=== PATIENT | male | born 2000 | race American Indian/Alaskan Native ===

== ENCOUNTER 2020-05-28 22:38 | Emergency (ER) | payer SELFPAY ==
[2020-05-28] MEDS ORDERED: ONDANSETRON 4 MG/2 ML INJ IV ONE (22:57)
[2020-05-28] MEDS ORDERED: SODIUM CHLORIDE 0.9% 1000 ML 1,000 ML IV ONE (22:57)
--- NOTE | 2020-05-28 23:06 | Event Note ---
ED Screening Note Date of service: 05/28/20 Time: 23:04 ED Screening Note: 19-year-old -Maced[place] male presents to the emergency room for abdominal pain with vomitus x7 days. Patient states he noticed a lot of blood in his vomitus. Patient states that he was seen at [facility] and was given a prescription for his stomach but never filled it. Patient admits that he drinks alcohol socially he smokes marijuana rarely denies any smoking of cigarettes. Patient reports he last vomited around 8 PM and denies any diarrhea. Patient denies any fever or chills. Does not have a primary care provider. Past medical history of GERD. No past surgical history. This initial assessment/diagnostic orders/clinical plan/treatment(s) is/are subject to change based on patients health status, clinical progression and re- assessment by fellow clinical providers in the ED. Further treatment and workup at subsequent clinical providers discretion. Patient/guardian urged not to elope from the ED as their condition may be serious if not clinically assessed and managed. Initial orders include: Labs urine and UDS ordered IV normal saline IV Zofran and CT of abdomen with contrast
[2020-05-28 23:43] LABS: Hematocrit 35.9 % (35.5-45.6); Mean Corpuscular HGB Conc 33 % (32-34); Mean Corpuscular Volume 79 fl (84-94); Platelet Count 284 K/mm3 (140-440); Red Blood Count 4.53 M/mm3 (3.65-5.03); Red Cell Distribution Width 14.5 % (13.2-15.2)
[2020-05-28 23:53] LABS: Basophils % (Auto) 0.4 % (0.0-1.8); Eosinophils % (Auto) 0.3 % (0.0-4.3); Lymphocytes # (Auto) 0.4 K/mm3 (1.2-5.4); Lymphocytes % (Auto) 8.7 % (13.4-35.0); Monocytes # (Auto) 0.5 K/mm3 (0.0-0.8); Monocytes % (Auto) 9.8 % (0.0-7.3)
[2020-05-29] LABS: Alanine Aminotransferase 6 units/L (7-56); Albumin 4.2 g/dL (3.9-5); BUN/Creatinine Ratio 9; Blood Urea Nitrogen 7 mg/dL (9-20); Calcium 9.6 mg/dL (8.4-10.2); Hemolysis Index 0
[2020-05-29 00:26] LABS: Amphetamine Screen,Urine PRESUMPTIVE NEGATIVE; Benzodiazepines Screen,Urine PRESUMPTIVE NEGATIVE; Cannabinoid Screen,Urine PRESUMPTIVE NEGATIVE; Cocaine Screen,Urine PRESUMPTIVE NEGATIVE; Methadone Screen,Urine PRESUMPTIVE NEGATIVE; Opiate Screen,Urine PRESUMPTIVE NEGATIVE
[2020-05-29 00:33] LABS: Bilirubin,Urine NEG (Negative); Blood,Urine NEG (Negative); Color,Urine Amber (Yellow); Mucus,Urine 2+ /HPF; RBC,Urine < 1.0 /HPF (0.0-6.0)
--- NOTE | 2020-05-29 01:33 | Emergency Department Report ---
ED Abdominal Pain HPI - General Chief Complaint: Nausea/Vomiting/Diarrhea Stated Complaint: EMESIS BLOOD/BACK PAIN PUI?: No Time Seen by Provider: 05/28/20 22:56 Source: patient, EMS Mode of arrival: Stretcher Limitations: No Limitations - History of Present Illness Initial Comments: 19-year-old -[place]ir[place] male presents to the emergency room for abdominal pain with vomitus x7 days. Patient states he noticed a lot of blood in his vomitus. Patient states that he was seen at [facility] and was given a prescription for his stomach but never filled it. Patient admits that he drinks alcohol socially he smokes marijuana rarely denies any smoking of cigarettes. Patient reports he last vomited around 8 PM and denies any diarrhea. Patient denies any fever or chills. Does not have a primary care provider. Past medical history of GERD. No past surgical history. MD Complaint: abdominal pain Onset/Timin -: days(s) Location: diffuse Radiation: none Migration to: no migration Severity scale (0 -10): 8 Quality: aching Consistency: intermittent Improves With: nothing Worsens With: nothing Associated Symptoms: nausea, vomiting - Related Data Previous Rx's Medication Instructions Recorded Last Taken Type Doxycycline Hyclate [Doxycycline 100 mg PO Q12HR 10 Days #20 tab 05/29/20 Unknown Rx Hyclate TAB] Ondansetron [Zofran Odt] 4 mg PO Q8HR PRN #12 tab.rapdis 05/29/20 Unknown Rx levoFLOXacin [Levaquin TAB] 500 mg PO QDAY #7 tablet 05/29/20 Unknown Rx metroNIDAZOLE [Flagyl] 500 mg PO Q8HR #21 tablet 05/29/20 Unknown Rx Allergies Allergy/AdvReac Type Severity Reaction Status Date / Time No Known Allergies Allergy Unverified 05/28/20 22:55 ED Review of Systems ROS: Stated complaint: EMESIS BLOOD/BACK PAIN Other details as noted in HPI Comment: All other systems reviewed and negative ED Past Medical Hx - Past Medical History Previous Medical History?: Yes Hx GERD: Yes - Surgical History Past Surgical History?: No - Social History Smoking Status: Never Smoker Substance Use Type: None - Medications Home Medications: Home Medications Medication Instructions Recorded Confirmed Last Taken Type Doxycycline Hyclate [Doxycycline 100 mg PO Q12HR 10 Days #20 tab 05/29/20 Unknown Rx Hyclate TAB] Ondansetron [Zofran Odt] 4 mg PO Q8HR PRN #12 tab.rapdis 05/29/20 Unknown Rx levoFLOXacin [Levaquin TAB] 500 mg PO QDAY #7 tablet 05/29/20 Unknown Rx metroNIDAZOLE [Flagyl] 500 mg PO Q8HR #21 tablet 05/29/20 Unknown Rx ED Physical Exam - General Limitations: No Limitations General appearance: alert, in no apparent distress - Head Head exam: Present: atraumatic, normocephalic - Eye Eye exam: Present: normal appearance - ENT ENT exam: Present: mucous membranes moist - Respiratory Respiratory exam: Present: normal lung sounds bilaterally - Cardiovascular Cardiovascular Exam: Present: regular rate, normal rhythm. Absent: systolic murmur, diastolic murmur, rubs, gallop - GI/Abdominal GI/Abdominal exam: Present: soft, tenderness, normal bowel sounds. Absent: distended, guarding, rebound - Rectal Rectal exam: Present: deferred - Extremities Exam Extremities exam: Present: normal inspection - Back Exam Back exam: Present: normal inspection - Neurological Exam Neurological exam: Present: alert, oriented X3, normal gait - Psychiatric Psychiatric exam: Present: normal affect, normal mood - Skin Skin exam: Present: warm, dry, intact, normal color. Absent: rash ED Course Vital Signs 05/28/20 05/29/20 22:43 02:35 Temperature 100.6 F H 99.3 F Pulse Rate 120 H 96 H Respiratory 18 18 Rate Blood Pressure 126/83 Blood Pressure 136/81 [Left] O2 Sat by Pulse 99 99 Oximetry ED Medical Decision Making - Lab Data Result diagrams: 05/28/20 23:06 05/28/20 23:06 - Radiology Data Radiology results: report reviewed Patient: MANDY CORTES MR#: [id number] : 2000 Acct:[id number] Age/Sex: 19 / M ADM Date: 05/28/20 Loc: ED Attending Dr: Ordering Physician: LEONARDA GARAY Date of Service: 05/28/20 Procedure(s): CT abdomen pelvis w con Accession Number(s): [id number] cc: LEONARDA GARAY CT abdomen pelvis w con INDICATION / CLINICAL INFORMATION: abd pain with N/V. TECHNIQUE: Axial CT imaging of abdomen and pelvis was obtained with IV contrast. Coronal and sagittal reformatted imaging obtained and reviewed. All CT scans at this location are performed using CT dose reduction for ALARA by means of automated exposure control. COMPARISON: None available. FINDINGS: CT abdomen with contrast demonstrates normal appearance of the liver, spleen, pancreas, kidneys, and adrenal glands. Gallbladder is present and appears grossly unremarkable. No biliary dilatation. There is fluid within the visualized portion of the distal esophagus suggesting esophageal reflux. CT pelvis with contrast demonstrates normal appearance of the appendix. No pelvic mass, free fluid, or focal inflammatory changes noted. There are multiple fluid-filled slightly enhancing loops of nondilated small bowel noted throughout the abdomen and pelvis. This can indicate the presence of enteritis and clinical correlation is recommended. Visualized lung bases are clear. No significant osseous abnormality. IMPRESSION: 1. Probable enteritis. Please correlate with patient's symptoms/presentation. 2. No other significant finding within the abdomen or pelvis. Signer Name: Massiel Cornelius MD Signed: 05/29/2020 3:08 AM Workstation Name: [id number] Transcribed By: Dictated By: Massiel Cornelius MD Electronically Authenticated By: Massiel Cornelius MD Signed Date/Time: 05/29/20307 DD/ 3 TD/TT: - Medical Decision Making 19-year-old -[place]ir[place] male presents to the emergency room for abdominal pain with vomitus x7 days. Patient states he noticed a lot of blood in his vomitus. Patient states that he was seen at [facility] and was given a prescription for his stomach but never filled it. Patient admits that he drinks alcohol socially he smokes marijuana rarely denies any smoking of cigarettes. Patient reports he last vomited around 8 PM and denies any diarrhea. Patient denies any fever or chills. Does not have a primary care provider. Past medical history of GERD. No past surgical history. Labs show that patient has 35 WBCs in his urine. No white count and his serum. Critical care attestation.: If time is entered above; I have spent that time in minutes in the direct care of this critically ill patient, excluding procedure time. ED Disposition Clinical Impression: Enteritis UTI (urinary tract infection) Qualifiers: Urinary tract infection type: acute cystitis Hematuria presence: without hematuria Qualified Code(s): N30.00 - Acute cystitis without hematuria Disposition: TO HOME OR SELFCARE Is pt being admited?: No Does the pt Need Aspirin: No Condition: Stable Instructions: Viral Gastroenteritis, Adult, [id number] Additional Instructions: Complete antibiotics as prescribed. Take the Zofran as needed for nausea. Follow-up with a manager staffing or primary care provider. Prescriptions: Doxycycline Hyclate [Doxycycline Hyclate TAB] 100 mg PO Q12HR 10 Days #20 tab metroNIDAZOLE [Flagyl] 500 mg PO Q8HR #21 tablet levoFLOXacin [Levaquin TAB] 500 mg PO QDAY #7 tablet Ondansetron [Zofran Odt] 4 mg PO Q8HR PRN #12 tab.rapdis PRN Reason: Nausea And Vomiting Referrals: PRIMARY CARE, [Primary Care Provider] - 3-5 Days [facility] [Provider Group] - 3-5 Days [facility] [Provider Group] - 3-5 Days Forms: Work/School Release Form(ED)
--- NOTE | 2020-05-29 03:12 | Cat Scan Report ---
CT abdomen pelvis w con INDICATION / CLINICAL INFORMATION: abd pain with N/V. TECHNIQUE: Axial CT imaging of abdomen and pelvis was obtained with IV contrast. Coronal and sagittal reformatte d imaging obtained and reviewed. All CT scans at this location are performed using CT dose reduction for ALARA by means of automated exposure control. COMPARISON: None available. FINDINGS: CT abdomen with contrast demonstrates normal appearance of the liver, spleen, pancreas, kidneys, and adrenal glands. Gallbladder is present and appears grossly unremarkable. No biliary dilatation. There is fluid within the visualized portion of the distal esophagus suggesting esophageal reflux. CT pelvis with contrast demonstrates normal appearance of the appendix. No pelvic mass, free fluid, o r focal inflammatory changes noted. There are multiple fluid-filled slightly enhancing loops of nondilated small bowel noted throughout t he abdomen and pelvis. This can indicate the presence of enteritis and clinical correlation is recomm ended. Visualized lung bases are clear. No significant osseous abnormality. IMPRESSION: 1. Probable enteritis. Please correlate with patient's symptoms/presentation. 2. No other significant finding within the abdomen or pelvis. Signer Name: Massiel Cornelius MD Signed: 05/29/2020 3:08 AM Workstation Name: [id number]
[2020-05-29] MEDS ORDERED: SODIUM CHLORIDE 0.9% 1000 ML 1,000 ML ONE (04:11)
[2020-05-29] MEDS ORDERED: ONDANSETRON 4 MG/2 ML INJ ONE (04:11)
[2020-05-29] MEDS ORDERED: SODIUM CHLORIDE 0.9% 1000 ML 1,000 ML IV ONE (04:14)
[2020-05-29] MEDS ORDERED: ONDANSETRON 4 MG/2 ML INJ IV ONE ×2 (04:15→04:20)
[2020-05-29] MEDS ORDERED: LIDOCAINE-MPF (1%) 10 MG/1 ML VIAL 5 ML INFILTRATI ONE (04:21)
[2020-05-29 06:20] VITALS: BP 127/83
== END 2020-05-29 06:21 | disposition home or self-care (01) ==
LOC: ED 22:38
DX: N39.0 Urinary tract infection, site not specified (principal); K52.9 Noninfective gastroenteritis and colitis, unspecified; K21.9 Gastro-esophageal reflux disease without esophagitis; Z79.899 Other long term (current) drug therapy
CPT/HCPCS: 36415; 74177; 80053; 80307; 81001; 83690; 85025; 87086; 96361; 96372; 96374; 96376; 99284; J0696; J2405; J7030; Q9967

== ENCOUNTER 2020-12-12 21:54 | Emergency (ER) | payer SELFPAY ==
[2020-12-13 03:33] VITALS: BP 128/70
[2020-12-13] MEDS ORDERED: BUTALB/ACETAMINOPHEN/CAFFEINE TAB PO ONE (04:34)
[2020-12-13] MEDS ORDERED: KETOROLAC 30 MG/1 ML INJ IM ONE (04:34)
[2020-12-13] MEDS ORDERED: ONDANSETRON 4 MG ODT TAB PO ONE (04:34)
--- NOTE | 2020-12-13 04:49 | Emergency Department Report ---
ED Headache HPI - General Chief Complaint: Headache Stated Complaint: HEADACHE X4DAYS/EMESIS - History of Present Illness Initial Comments: Patient is a 20-year-old -[place] male with no past medical history who presents to the ED with complaint of acute onset persistent frontal sinus pressure and headache with nausea and vomiting for the last 1 week, worse in the last 2 days. Patient states that the frontal headache is worse whenever he gets up or keshav down. Patient denies dizziness, syncope, chest pain, shortness of breath, fever, chills, nasal and sinus congestion, sore throat, cough, back pain, neck pain, traumatic injury, fall or traumatic injury. Timing/Duration: 1 week, constant, waxing and waning Quality: severe, pressure, sharp Head Injury Location: frontal Recent Head Trauma: no recent headache/trauma Associated Symptoms: denies symptoms, nausea/vomiting, sinus infection. denies: confusion, fatigue, facial pain, fever/chills, flushing, loss of consciousness, nasal congestion, nasal drainage, numbness in legs/feet, seizures, stiff neck, weakness Allergies/Adverse Reactions: Allergies No Known Allergies Allergy (Unverified 05/28/20 22:55) Home Medications: Ambulatory Orders Doxycycline Hyclate [Doxycycline Hyclate TAB] 100 mg PO Q12HR 10 Days #20 tab 05/29/20 levoFLOXacin [Levaquin TAB] 500 mg PO QDAY #7 tablet 05/29/20 metroNIDAZOLE [Flagyl] 500 mg PO Q8HR #21 tablet 05/29/20 Amoxicillin/Potassium Clav [Augmentin 875-125 Tablet] 1 each PO Q12H #20 tablet 12/13/20 Butalb/Acetamin/Caff 50-325-40 [Fioricet 50-325-40] 1 - 2 tab PO Q6HR PRN #15 tab 12/13/20 Ibuprofen [Motrin] 600 mg PO Q8H PRN #30 tablet 12/13/20 Ondansetron [Zofran ODT TAB] 4 mg PO Q8HR PRN #20 tab.rapdis 12/13/20 ED Review of Systems ROS: Stated complaint: HEADACHE X4DAYS/EMESIS Other details as noted in HPI Constitutional: denies: chills, fever Eyes: denies: eye pain, eye discharge, vision change ENT: other (Frontal sinus pressure). denies: ear pain, throat pain Respiratory: denies: cough, shortness of breath, wheezing Cardiovascular: denies: chest pain, palpitations Endocrine: no symptoms reported Gastrointestinal: nausea, vomiting. denies: abdominal pain, diarrhea Genitourinary: denies: urgency, dysuria Musculoskeletal: denies: back pain, joint swelling, arthralgia Skin: denies: rash, lesions Neurological: headache (Frontal headache). denies: weakness, paresthesias Psychiatric: denies: anxiety, depression Hematological/Lymphatic: denies: easy bleeding, easy bruising ED Past Medical Hx - Past Medical History Previous Medical History?: Yes Hx GERD: Yes - Surgical History Past Surgical History?: No - Social History Smoking Status: Never Smoker Substance Use Type: Alcohol - Medications Home Medications: Home Medications Medication Instructions Recorded Confirmed Last Taken Type Doxycycline Hyclate [Doxycycline 100 mg PO Q12HR 10 Days #20 tab 05/29/20 Unknown Rx Hyclate TAB] levoFLOXacin [Levaquin TAB] 500 mg PO QDAY #7 tablet 05/29/20 Unknown Rx metroNIDAZOLE [Flagyl] 500 mg PO Q8HR #21 tablet 05/29/20 Unknown Rx Amoxicillin/Potassium Clav 1 each PO Q12H #20 tablet 12/13/20 Unknown Rx [Augmentin 875-125 Tablet] Butalb/Acetamin/Caff 50-325-40 1 - 2 tab PO Q6HR PRN #15 tab 12/13/20 Unknown Rx [Fioricet 50-325-40] Ibuprofen [Motrin] 600 mg PO Q8H PRN #30 tablet 12/13/20 Unknown Rx Ondansetron [Zofran ODT TAB] 4 mg PO Q8HR PRN #20 tab.rapdis 12/13/20 Unknown Rx ED Physical Exam - General Limitations: No Limitations General appearance: alert, in no apparent distress - Head Head exam: Present: atraumatic, normocephalic, normal inspection - Eye Eye exam: Present: normal appearance, PERRL, EOMI Pupils: Present: normal accommodation - ENT ENT exam: Present: normal orophraynx, mucous membranes moist, TM's normal bilaterally, normal external ear exam, other (Palpable frontal and maxillary sinus tenderness) - Neck Neck exam: Present: normal inspection, full ROM - Respiratory Respiratory exam: Present: normal lung sounds bilaterally. Absent: respiratory distress, wheezes, rales, rhonchi, chest wall tenderness, accessory muscle use, decreased breath sounds, prolonged expiratory - Cardiovascular Cardiovascular Exam: Present: regular rate, normal rhythm, normal heart sounds. Absent: systolic murmur, diastolic murmur, rubs, gallop - GI/Abdominal GI/Abdominal exam: Present: soft, normal bowel sounds. Absent: tenderness, guarding, rebound, hyperactive bowel sounds, hypoactive bowel sounds, organomegaly - Extremities Exam Extremities exam: Present: normal inspection, full ROM, normal capillary refill - Back Exam Back exam: Present: normal inspection, full ROM. Absent: tenderness, CVA tenderness (R), CVA tenderness (L), muscle spasm, paraspinal tenderness, vertebral tenderness - Neurological Exam Neurological exam: Present: alert, oriented X3, CN II-XII intact, normal gait, reflexes normal - Psychiatric Psychiatric exam: Present: normal affect, normal mood - Skin Skin exam: Present: warm, dry, intact, normal color. Absent: rash ED Course Vital Signs 12/13/20 02:01 Temperature 99.8 F H Pulse Rate 93 H Respiratory 18 Rate Blood Pressure 128/70 O2 Sat by Pulse 100 Oximetry ED Medical Decision Making - Medical Decision Making This is a 20-year-old -[place] male with no past medical history who presents to the ED with complaint of acute onset persistent frontal sinus pressure and headache with nausea and vomiting for the last 1 week, worse in the last 2 days. Patient states that the frontal headache is worse whenever he gets up or keshav down. In the ED, patient is alert and oriented x3 and is not in any distress. Patient is hemodynamically stable. Patient was treated for pain in the ED based on the history and physical exam findings of palpable frontal sinus tenderness. Patient symptoms are likely due to frontal sinusitis. On reevaluation, patient's pain is well controlled medications. Patient was ther efore discharged home on pain medications and antibiotics and advised to follow- up with his primary care physician in 7 to 10 days for reevaluation. Patient was advised to return to the ED immediately if symptoms get worse. - Differential Diagnosis Sinusitis; sinusitis; tension headache; URI; Critical care attestation.: If time is entered above; I have spent that time in minutes in the direct care of this critically ill patient, excluding procedure time. ED Disposition Clinical Impression: Sinus headache, Nausea and vomiting in adult patient Acute frontal sinusitis, unspecified Qualifiers: Recurrence: non-recurrent Qualified Code(s): J01.10 - Acute frontal sinusitis, unspecified Disposition: - TO HOME OR SELFCARE Is pt being admited?: No Does the pt Need Aspirin: No Condition: Stable Instructions: Sinusitis, Adult, [id number], Nausea and Vomiting, Adult, [id number], Sinus Headache, [id number] Additional Instructions: Take medication with food, drink plenty fluids and follow-up with your primary care physician in 7 to 10 days for reevaluation. Return to the ED immediately if symptoms get worse. Prescriptions: Amoxicillin/Potassium Clav [Augmentin 875-125 Tablet] 1 each PO Q12H #20 tablet Butalb/Acetamin/Caff 50-325-40 [Fioricet 50-325-40] 1 - 2 tab PO Q6HR PRN #15 tab PRN Reason: Headache Ibuprofen [Motrin] 600 mg PO Q8H PRN #30 tablet PRN Reason: Pain Ondansetron [Zofran ODT TAB] 4 mg PO Q8HR PRN #20 tab.rapdis PRN Reason: Nausea And Vomiting Referrals: [facility] [Provider Group] - 7-10 days Forms: Work/School Release Form(ED) Time of Disposition: 04:50 Print Language: SYRIAN
== END 2020-12-13 05:20 | disposition home or self-care (01) ==
LOC: ED 21:54
DX: J01.10 Acute frontal sinusitis, unspecified (principal); R51.9 Headache, unspecified; R11.2 Nausea with vomiting, unspecified; K21.9 Gastro-esophageal reflux disease without esophagitis; Z79.899 Other long term (current) drug therapy
CPT/HCPCS: 96372; 99283; J1885; Q0162